=== PATIENT | female | born 1970 | race African-American/Black ===

== ENCOUNTER 2017-05-04 18:16 | Emergency (ER) | payer OTHER ==
[2017-05-04 18:24] VITALS: BP 122/89
== END 2017-05-04 19:26 | disposition home or self-care (01) ==
LOC: ED 18:16
DX: J06.9 Acute upper respiratory infection, unspecified (principal)

== ENCOUNTER 2017-11-21 18:22 | Emergency (ER) | payer OTHER ==
[~2017-11-21] VITALS: Ht 149.9 cm; Wt 91.2 kg
[2017-11-21 18:37] VITALS: Ht 149.9 cm; Wt 91.2 kg
[2017-11-21 19:49] VITALS: BP 150/95
== END 2017-11-21 19:49 | disposition home or self-care (01) ==
LOC: ED 18:22
DX: L03.116 Cellulitis of left lower limb (principal)

== ENCOUNTER 2017-11-24 20:08 | Emergency (ER) | payer OTHER ==
[~2017-11-24] VITALS: Ht 149.9 cm; Wt 90.3 kg
[2017-11-24 20:11] VITALS: Ht 149.9 cm; Wt 90.3 kg
[2017-11-24 23:17] VITALS: BP 102/52
== END 2017-11-24 23:17 | disposition home or self-care (01) ==
LOC: ED 20:08
DX: Z09 Encounter for follow-up examination after completed treatment for conditions other than malignant neoplasm (principal)

== ENCOUNTER 2018-07-10 21:15 | Emergency (ER) | payer OTHER ==
[~2018-07-10] VITALS: Ht 149.9 cm; Wt 98.9 kg
[2018-07-10 21:32] VITALS: BP 150/88; Ht 149.9 cm; Wt 98.9 kg
== END 2018-07-11 01:42 | disposition home or self-care (01) ==
LOC: ED 21:15
DX: J20.9 Acute bronchitis, unspecified (principal); M54.9 Dorsalgia, unspecified

== ENCOUNTER 2018-10-31 21:35 | Emergency (ER) | payer OTHER ==
[~2018-10-31] VITALS: Ht 149.9 cm; Wt 99.9 kg
[2018-10-31 22:13] VITALS: Ht 149.9 cm; Wt 99.9 kg
[2018-11-01 00:17] VITALS: BP 141/73
== END 2018-11-01 00:17 | disposition home or self-care (01) ==
LOC: ED 21:35
DX: S39.012A Strain of muscle, fascia and tendon of lower back, initial encounter (principal); W01.0XXA Fall on same level from slipping, tripping and stumbling without subsequent striking against object, initial encounter; Y93.89 Activity, other specified; Y92.89 Other specified places as the place of occurrence of the external cause; Y99.8 Other external cause status
CPT/HCPCS: J1885

== ENCOUNTER 2019-02-12 19:14 | Emergency (ER) | payer OTHER ==
[~2019-02-12] VITALS: Ht 149.9 cm; Wt 98.4 kg
[2019-02-12 19:31] VITALS: BP 160/86; Ht 149.9 cm; Wt 98.4 kg
== END 2019-02-12 21:12 | disposition home or self-care (01) ==
LOC: ED 19:14
DX: S60.411A Abrasion of left index finger, initial encounter (principal); W22.8XXA Striking against or struck by other objects, initial encounter; Y93.89 Activity, other specified; Y92.89 Other specified places as the place of occurrence of the external cause; Y99.8 Other external cause status
CPT/HCPCS: 90715; 99406; J1885